=== PATIENT | male | born 1990 | race African-American/Black ===

== ENCOUNTER → 2020-01-29 14:30 | Outpatient (BNVA) | payer BC, SELFPAY | PROVIDERS: Visit Provider Nurse Practitioner Family | DX: Z20.828 Contact with and (suspected) exposure to other viral communicable diseases (principal) | CPT/HCPCS: 87635 ==

== ENCOUNTER → 2021-02-18 15:39 | Outpatient (BNVA) | payer OTHER, SELFPAY | PROVIDERS: Visit Provider Nurse Practitioner | DX: Z20.822 Contact with and (suspected) exposure to COVID-19 (principal) | CPT/HCPCS: 87635 ==

== ENCOUNTER 2021-02-27 03:29 | Emergency (ER) | payer OTHER, SELFPAY ==
[2021-02-27] VITALS (12 sets, daily range): BP systolic 123–145; BP diastolic 73–91; PULSE 91–117; RESP 16–26; O2SAT 96–99; BMI 24.4
--- NOTE | 2021-02-27 03:30 | ED_ITS ---
Documented by User: Harpal Casarez MD 03/07/21 19:38 HPI - Overdose General: Chief Complaint: Overdose Stated Complaint: substance abuse Time Seen by Provider: 02/27/21 03:29 Source: EMS Mode of arrival: EMS Limitations: altered mental status History of Present Illness: HPI Narrative: Mr. Echevarria is a 30-year-old gentleman with unclear past history who presents to the emergency department secondary to altered mental status. Per EMS report the patient injected approximately 20 cc of meth at about 1:30 AM. Upon arrival of EMS, who were activated for somewhat unclear reasons, patient was agitated, altered, tachycardic. He received Zofran, approximately 2 L of IV fluids, and roughly 200 mg of ketamine. At most his heart rate was 176. Prior to ketamine the patient denied SI to EMS. Upon assessment in the ED room patient does not provide significant history, he is somnolent. History otherwise limited by patient's mental status. complaint: other Onset (ago): hour(s) Review of Systems General: Reports: ROS unobtainable due to mental status [facility] ED PFSH: Medical History (Updated 03/07/21 @ 19:33 by Harpal Casarez MD) No significant past medical history Surgical History (Updated 03/07/21 @ 19:33 by Harpal Casarez MD) No significant past surgical history Social History Smoking and tobacco status: current every day smoker Physical Exam Const: EXAM LIMITATIONS: altered mental status GENERAL APPEARANCE: well developed HENMT: COMMON NORMALS: normocephalic, atraumatic and Normal external nose present HEAD & SCALP: normocephalic and atraumatic NOSE: Normal external nose present THROAT: posterior oropharynx normal Eye: COMMON NORMALS: Equal, round and reactive pupils present and conjunctivae normal CONJUNCTIVA: Yes conjunctivae normal SCLERA: sclerae normal PUPIL: Yes Equal, round and reactive pupils present Neck/C-Spine: COMMON NORMALS: supple GENERAL: Yes trachea midline Resp: COMMON NORMALS: normal respiratory effort EFFORT & INSPECTION: No grunting and No stridor AUSCULTATION: diminished lung sounds Cardio: COMMON NORMALS: regular rhythm RATE: tachycardic RHYTHM: regular rhythm GI: COMMON NORMALS: Soft to palpation PALPATION: Yes Soft to palpation and No Tenderness to palpation present (GI) PERCUSSION: normal to percussion Extremity: GENERAL: Yes normal exam except as noted and No edema Neuro: COMMON NORMALS: moves all extremities SENSORIUM/ORIENTATION: Yes somnolent Psych: ATTENTION/CONCENTRATION: Yes attention grossly impaired MEMORY/COGNITION: Yes cognition grossly impaired Course ED course: - Patient was seen and evaluated by me at bedside - Patient placed on cardiac monitors, IV access obtained - Initial evaluation notable for exam as above, patient is clinically intoxicated consistent with reported amphetamine abuse and mental status decreased likely secondary to prehospital ketamine administration. -Additional IV fluids ordered - Labs notable for leukocytosis which is likely reactive. Metabolic panel with evidence of dehydration. CK is mildly elevated however likely to improve with fluid resuscitation and given improvement in amphetamine intoxication. Lactate is elevated. - Imaging notable for no acute intracranial hemorrhage or mass. Chest x-ray with questionable infiltrate, unlikely to be infectious in etiology more likely. Multifactorial with possible mild aspiration though patient does not endorse respiratory symptoms - Upon serial reexamination after treatment the patient was improved. Mental status markedly improved and patient calm and cooperative. - Patient care handed off to daytime ED physician Dr Townsend pending reevaluation and repeat lactate. Note: Click bubbles or prepopulated travis in note writing are used for assistance with data collection and billing and are inherently more limited than narrative and other text portions of this note. Please use narrative for additional clinical history and defer to narrative/free test for any case of contradictory information. If information appears in only free text or click bubble it should be considered present or absent as reported. Please contact note technical publications writer for clarifications of clinical information or contradictory information. MDM is a brief summary, contradictory or erroneous seeming information should be clarified and full note should be reviewed. Vital Signs: Vital signs: Vital Signs Pulse Rate 102 H 02/27/21 12:07 Respiratory Rate 21 H 02/27/21 11:02 Blood Pressure 134/75 02/27/21 12:07 Pulse Oximetry 98 02/27/21 12:07 MDM - Overdose MDM Narrative: Medical decision making narrative: 30-year-old gentleman with reported intravenous use of methamphetamine requiring prehospital ketamine presenting for further evaluation. Initially altered in mental status though slowly improved, labs consistent with substance abuse however will likely also improve with treatment. Patient care handed off to Dr. Townsend pending reevaluation and completion of ED evaluation. Medical Records: Attestation: I reviewed the patient's medical records. Lab Data: Attestation: I reviewed the patient's lab results. Labs: Lab Results 02/27/21 02/27/21 02/27/21 03:41 03:41 03:41 WBC 13.7 10^3/uL H 10 ^3/uL (4.0-10.0) RBC 4.77 10^6/uL 10^6 /uL (4.1-5.3) Hgb 13.7 g/dL g/dL (11.7-16.6) Hct 41.8 % L % (42.0-52.0) MCV 87.6 fl fl (80-94) MCH 28.7 pg pg (28.0-34.0) MCHC 32.8 g/dL g/dL (30.0-36.0) RDW 12.3 % % (12.1-15.1) Plt Count 236 10^3/cmm 10^3 /cmm (130-400) MPV 10.1 fL fL (7.4-10.4) Neut % (Auto) 86.2 % % Lymph % (Auto) 4.7 % % [place] % (Auto) 8.4 % % Eos % (Auto) 0.1 % % Baso % (Auto) 0.2 % % Neut # (Auto) 11.85 10^3/uL H 1 0^3/uL (1.8-7.7) Lymph # (Auto) 0.6 10^3/uL L 10^ 3/uL (0.8-4.8) [place] # (Auto) 1.2 10^3/uL H 10^ 3/uL (0.2-0.9) Eos # (Auto) 0.0 10^3/uL 10^3/ uL (0.0-0.8) Baso # (Auto) 0.0 10^3/uL 10^3/ uL (0.0-0.1) Nucleated RBC % (a uto) 0 % % Nucleated RBCs # 0.0 /100WBC /100W BC Sodium 143 mmol/L mmol/L (136-145) Potassium 3.1 mmol/L L mmol /L (3.5-5.1) Chloride 105 mmol/L mmol/L (98-107) Carbon Dioxide 18 mmol/L L mmol/ L (22-29) Anion Gap 23.1 H (5-19) BUN 13 mg/dL mg/dL (6-20) Creatinine 1.1 mg/dL mg/dL (0.7-1.2) GFR Calculation 95.1 mL/min mL/mi n (90-130) Glucose 80 mg/dL mg/dL (65-115) POC Glucose Calculated Osmolal ity 295 mOsm/kg mOsm/ kg (285-295) Lactic Acid 6.8 mmol/L H* mmo l/L (0.5-2.2) Lactic Acid (Sepsi s) Lactate Calcium 8.6 mg/dL mg/dL (8.5-10.5) Total Bilirubin 0.4 mg/dL mg/dL (0.15-1.2) AST 31 U/L U/L (0-40) ALT 24 U/L U/L (0-41) Alkaline Phosphata se 81 IU/L IU/L (40-130) Creatine Kinase Total Protein 7.1 g/dL g/dL (6.6-8.7) Albumin 4.1 g/dL g/dL (3.5-5.2) Globulin 3.0 g/dL g/dL (1.3-4.6) TSH 1.76 uIU/mL uIU/m L (0.27-4.20) Urine Color Urine Appearance Urine pH Ur Specific Gravit y Urine Protein Urine Glucose (UA) Urine Ketones Urine Blood Urine Nitrate Urine Bilirubin Urine Urobilinogen Ur Leukocyte Jennifer ase Salicylates < 0.3 mg/dL L mg/ dL (3-10) Urine Opiates Scre en Acetaminophen < 5.0 ug/mL L ug/ mL (10-30) Ur Barbiturates Sc reen Ur Phencyclidine S crn Ur Amphetamines Sc reen U Benzodiazepines Scrn Urine Cocaine Scre en U Marijuana (THC) Screen Ethyl Alcohol < 10 mg/dL mg/dL (0-10) 02/27/21 02/27/21 02/27/21 03:41 03:51 05:56 WBC RBC Hgb Hct MCV MCH MCHC RDW Plt Count MPV Neut % (Auto) Lymph % (Auto) [place] % (Auto) Eos % (Auto) Baso % (Auto) Neut # (Auto) Lymph # (Auto) [place] # (Auto) Eos # (Auto) Baso # (Auto) Nucleated RBC % (a uto) Nucleated RBCs # Sodium Potassium Chloride Carbon Dioxide Anion Gap BUN Creatinine GFR Calculation Glucose POC Glucose 76 mg/dL mg/dL (70-110) Calculated Osmolal ity Lactic Acid Lactic Acid (Sepsi s) 0.9 mmol/L mmol/L (0.5-2.2) Lactate Calcium Total Bilirubin AST ALT Alkaline Phosphata se Creatine Kinase 436 U/L H* U/L (39-308) Total Protein Albumin Globulin TSH Urine Color Urine Appearance Urine pH Ur Specific Gravit y Urine Protein Urine Glucose (UA) Urine Ketones Urine Blood Urine Nitrate Urine Bilirubin Urine Urobilinogen Ur Leukocyte Jennifer ase Salicylates Urine Opiates Scre en Acetaminophen Ur Barbiturates Sc reen Ur Phencyclidine S crn Ur Amphetamines Sc reen U Benzodiazepines Scrn Urine Cocaine Scre en U Marijuana (THC) Screen Ethyl Alcohol 02/27/21 02/27/21 02/27/21 07:20 07:20 09:43 WBC RBC Hgb Hct MCV MCH MCHC RDW Plt Count MPV Neut % (Auto) Lymph % (Auto) [place] % (Auto) Eos % (Auto) Baso % (Auto) Neut # (Auto) Lymph # (Auto) [place] # (Auto) Eos # (Auto) Baso # (Auto) Nucleated RBC % (a uto) Nucleated RBCs # Sodium Potassium Chloride Carbon Dioxide Anion Gap BUN Creatinine GFR Calculation Glucose POC Glucose Calculated Osmolal ity Lactic Acid Lactic Acid (Sepsi s) Lactate 1.0 mmol/L mmol/L (0.5-2.2) Calcium Total Bilirubin AST ALT Alkaline Phosphata se Creatine Kinase Total Protein Albumin Globulin TSH Urine Color Yellow (Yellow) Urine Appearance Clear (CLEAR) Urine pH 5 (5-7) Ur Specific Gravit y 1.025 (1.005-1.030) Urine Protein Neg (Negative) Urine Glucose (UA) Norm (Normal) Urine Ketones Negative (Negative) Urine Blood Neg (Negative) Urine Nitrate Negative (Negative) Urine Bilirubin Neg (Negative) Urine Urobilinogen Norm mg/dL mg/dL (Negative) Ur Leukocyte Jennifer ase Negative (Negative) Salicylates Urine Opiates Scre en Negative ng/mL ng /mL (Negative) Acetaminophen Ur Barbiturates Sc reen Negative ng/mL ng /mL (Negative) Ur Phencyclidine S crn Negative ng/mL ng /mL (Negative) Ur Amphetamines Sc reen Positive ng/mL H ng/mL (Negative) U Benzodiazepines Scrn Negative ng/mL ng /mL (Negative) Urine Cocaine Scre en Negative ng/mL ng /mL (Negative) U Marijuana (THC) Screen Negative ng/mL ng /mL (Negative) Ethyl Alcohol 02/27/21 09:43 WBC RBC Hgb Hct MCV MCH MCHC RDW Plt Count MPV Neut % (Auto) Lymph % (Auto) [place] % (Auto) Eos % (Auto) Baso % (Auto) Neut # (Auto) Lymph # (Auto) [place] # (Auto) Eos # (Auto) Baso # (Auto) Nucleated RBC % (a uto) Nucleated RBCs # Sodium 140 mmol/L mmol/L (136-145) Potassium 4.6 mmol/L mmol/L (3.5-5.1) Chloride 106 mmol/L mmol/L (98-107) Carbon Dioxide 18 mmol/L L mmol/ L (22-29) Anion Gap 20.6 H (5-19) BUN 11 mg/dL mg/dL (6-20) Creatinine 0.9 mg/dL mg/dL (0.7-1.2) GFR Calculation 119.9 mL/min mL/m in (90-130) Glucose 68 mg/dL mg/dL (65-115) POC Glucose Calculated Osmolal ity 288 mOsm/kg mOsm/ kg (285-295) Lactic Acid Lactic Acid (Sepsi s) Lactate Calcium 8.2 mg/dL L mg/dL (8.5-10.5) Total Bilirubin AST ALT Alkaline Phosphata se Creatine Kinase Total Protein Albumin Globulin TSH Urine Color Urine Appearance Urine pH Ur Specific Gravit y Urine Protein Urine Glucose (UA) Urine Ketones Urine Blood Urine Nitrate Urine Bilirubin Urine Urobilinogen Ur Leukocyte Jennifer ase Salicylates Urine Opiates Scre en Acetaminophen Ur Barbiturates Sc reen Ur Phencyclidine S crn Ur Amphetamines Sc reen U Benzodiazepines Scrn Urine Cocaine Scre en U Marijuana (THC) Screen Ethyl Alcohol EKG Data^: EKG 1: Attestation: I personally reviewed and interpreted this EKG as follows: EKG interpretation date: 02/27/21 EKG interpretation time: 03:40 Interpretation: Twelve-lead EKG shows a regular rhythm at a rate of 102. UT interval 162, QRS duration 83, QTc 477. Normal axis. Interpretation: Sinus rhythm. Critical Care Time Critical Care Time: Critical Care Time: Yes Total Critical Care Time: 35 Attestation: Due to a high probability of clinically significant, possibly life threatening deterioration, the patient required my highest level of attention and preparedness to intervene emergently and I personally spent this critical care time directly and personally managing the patient. This critical care time included obtaining a history; examining the patient; pulse oximetry; ordering and review of laboratory and imaging studies; arranging urgent treatment with development of a management plan; evaluation of patient's response to treatment; frequent reassessment; and, discussions with other providers as applicable. It was exclusive of separately billable procedures. Discharge Plan Discharge Patient Disposition: Home Clinical Impression: Methamphetamine abuse, Acidosis, lactic, Acute hypokalemia, Elevated CK Condition: Stable Prescriptions: No Action No Known Home Medications RF: 0 Discharge Orders: Discharge ED (Routine); Ordered 02/27/21 Ordered By: Himanshu Townsend Discharge Diet: Usual diet Discharge Activity: Increase activity as tolerated Patient Instructions: Dehydration (ED), Hypokalemia (ED), Methamphetamine Abuse (ED), Psychotic Disorder (ED) Activity Restrictions/Additional Instructions: Thank you for visiting the emergency department. You were seen and evaluated for altered mental status likely associated with methamphetamine abuse. The drugs that you ingested put significant stress on your body. Please ensure that you are staying hydrated over the next few days. Please stop using methamphetamine. Failure to stop using methamphetamine will likely lead to or worse. Please follow-up with your primary care provider. Return to the emergency department for decreased urine output, shortness of breath, chest pain, weakness, palpitations, or anything else that you are concerned about and feel needs emergency department evaluation. Sign Out Sign Out Data: Patient Sign Out occurred on 02/27/21 at 06:46. Patient's care was discussed, and care was transferred from to Himanshu Townsend DO. Coding Level of Care Code ED Dietary Assistant for Chg Fwd Exam Comprehensive Documented by User: Himanshu Townsend DO 03/02/21 07:53 HPI - Overdose General: Chief Complaint: Overdose Stated Complaint: substance abuse Time Seen by Provider: 02/27/21 03:29 [facility] ED PFSH: Medical History (Updated 03/07/21 @ 19:33 by Harpal Casarez MD) No significant past medical history Surgical History (Updated 03/07/21 @ 19:33 by Harpal Casarez MD) No significant past surgical history Social History Smoking and tobacco status: current every day smoker Physical Exam Const: COMMON NORMALS: no acute distress GENERAL APPEARANCE: cooperative and comfortable ORIENTATION/CONSCIOUSNESS: Yes awake, Yes oriented to person, Yes oriented to place and Yes oriented to time HENMT: COMMON NORMALS: normocephalic, atraumatic and hearing grossly normal bilaterally HEAD & SCALP: normocephalic and atraumatic Neck/C-Spine: COMMON NORMALS: no JVD Resp: COMMON NORMALS: normal respiratory effort, No retractions, No use of accessory muscles and clear to auscultation bilaterally AUSCULTATION: clear to auscultation bilaterally Cardio: COMMON NORMALS: no JVD, regular rate, regular rhythm and No murmurs present (Cardio) RATE: regular rate RHYTHM: regular rhythm GI: COMMON NORMALS: Soft to palpation and No hepatosplenomegaly present AUSCULTATION: Yes normoactive bowel sounds PALPATION: Yes Soft to palpation, No Tenderness to palpation present (GI), No Guarding due to palpation present (GI) and Yes No hepatosplenomegaly present Extremity: COMMON NORMALS: normal to inspection, capillary refill normal, no clubbing, cyanosis or edema, no calf tenderness and no pedal edema Neuro: SENSORIUM/ORIENTATION: Yes oriented to person, Yes oriented to place and Yes oriented to time Skin: COMMON NORMALS: no rashes or lesions noted GENERAL SKIN EXAM: no rashes or lesions noted Course Vital Signs: Vital signs: Vital Signs Pulse Rate 102 H 02/27/21 12:07 Respiratory Rate 21 H 02/27/21 11:02 Blood Pressure 134/75 02/27/21 12:07 Pulse Oximetry 98 02/27/21 12:07 MDM - Overdose MDM Narrative: Medical decision making narrative: Care assumed from Dr. Casarez at change of shift. He was monitored for a few more hours he is doing much better his tachycardia has resolved he is awake alert oriented answers all questions appropriately. Repeat lactic acid is decreased. His anion gap has started to close. He is feeling much better and he wants to go home. He no longer appears to be acutely under the influence of methamphetamines. Discouraged future methamphetamine use discharge home follow-up with primary care. Lab Data: Labs: Lab Results 02/27/21 02/27/21 02/27/21 03:41 03:41 03:41 WBC 13.7 10^3/uL H 10 ^3/uL (4.0-10.0) RBC 4.77 10^6/uL 10^6 /uL (4.1-5.3) Hgb 13.7 g/dL g/dL (11.7-16.6) Hct 41.8 % L % (42.0-52.0) MCV 87.6 fl fl (80-94) MCH 28.7 pg pg (28.0-34.0) MCHC 32.8 g/dL g/dL (30.0-36.0) RDW 12.3 % % (12.1-15.1) Plt Count 236 10^3/cmm 10^3 /cmm (130-400) MPV 10.1 fL fL (7.4-10.4) Neut % (Auto) 86.2 % % Lymph % (Auto) 4.7 % % [place] % (Auto) 8.4 % % Eos % (Auto) 0.1 % % Baso % (Auto) 0.2 % % Neut # (Auto) 11.85 10^3/uL H 1 0^3/uL (1.8-7.7) Lymph # (Auto) 0.6 10^3/uL L 10^ 3/uL (0.8-4.8) [place] # (Auto) 1.2 10^3/uL H 10^ 3/uL (0.2-0.9) Eos # (Auto) 0.0 10^3/uL 10^3/ uL (0.0-0.8) Baso # (Auto) 0.0 10^3/uL 10^3/ uL (0.0-0.1) Nucleated RBC % (a uto) 0 % % Nucleated RBCs # 0.0 /100WBC /100W BC Sodium 143 mmol/L mmol/L (136-145) Potassium 3.1 mmol/L L mmol /L (3.5-5.1) Chloride 105 mmol/L mmol/L (98-107) Carbon Dioxide 18 mmol/L L mmol/ L (22-29) Anion Gap 23.1 H (5-19) BUN 13 mg/dL mg/dL (6-20) Creatinine 1.1 mg/dL mg/dL (0.7-1.2) GFR Calculation 95.1 mL/min mL/mi n (90-130) Glucose 80 mg/dL mg/dL (65-115) POC Glucose Calculated Osmolal ity 295 mOsm/kg mOsm/ kg (285-295) Lactic Acid 6.8 mmol/L H* mmo l/L (0.5-2.2) Lactic Acid (Sepsi s) Lactate Calcium 8.6 mg/dL mg/dL (8.5-10.5) Total Bilirubin 0.4 mg/dL mg/dL (0.15-1.2) AST 31 U/L U/L (0-40) ALT 24 U/L U/L (0-41) Alkaline Phosphata se 81 IU/L IU/L (40-130) Creatine Kinase Total Protein 7.1 g/dL g/dL (6.6-8.7) Albumin 4.1 g/dL g/dL (3.5-5.2) Globulin 3.0 g/dL g/dL (1.3-4.6) TSH 1.76 uIU/mL uIU/m L (0.27-4.20) Urine Color Urine Appearance Urine pH Ur Specific Gravit y Urine Protein Urine Glucose (UA) Urine Ketones Urine Blood Urine Nitrate Urine Bilirubin Urine Urobilinogen Ur Leukocyte Jennifer ase Salicylates < 0.3 mg/dL L mg/ dL (3-10) Urine Opiates Scre en Acetaminophen < 5.0 ug/mL L ug/ mL (10-30) Ur Barbiturates Sc reen Ur Phencyclidine S crn Ur Amphetamines Sc reen U Benzodiazepines Scrn Urine Cocaine Scre en U Marijuana (THC) Screen Ethyl Alcohol < 10 mg/dL mg/dL (0-10) 02/27/21 02/27/21 02/27/21 03:41 03:51 05:56 WBC RBC Hgb Hct MCV MCH MCHC RDW Plt Count MPV Neut % (Auto) Lymph % (Auto) [place] % (Auto) Eos % (Auto) Baso % (Auto) Neut # (Auto) Lymph # (Auto) [place] # (Auto) Eos # (Auto) Baso # (Auto) Nucleated RBC % (a uto) Nucleated RBCs # Sodium Potassium Chloride Carbon Dioxide Anion Gap BUN Creatinine GFR Calculation Glucose POC Glucose 76 mg/dL mg/dL (70-110) Calculated Osmolal ity Lactic Acid Lactic Acid (Sepsi s) 0.9 mmol/L mmol/L (0.5-2.2) Lactate Calcium Total Bilirubin AST ALT Alkaline Phosphata se Creatine Kinase 436 U/L H* U/L (39-308) Total Protein Albumin Globulin TSH Urine Color Urine Appearance Urine pH Ur Specific Gravit y Urine Protein Urine Glucose (UA) Urine Ketones Urine Blood Urine Nitrate Urine Bilirubin Urine Urobilinogen Ur Leukocyte Jennifer ase Salicylates Urine Opiates Scre en Acetaminophen Ur Barbiturates Sc reen Ur Phencyclidine S crn Ur Amphetamines Sc reen U Benzodiazepines Scrn Urine Cocaine Scre en U Marijuana (THC) Screen Ethyl Alcohol 02/27/21 02/27/21 02/27/21 07:20 07:20 09:43 WBC RBC Hgb Hct MCV MCH MCHC RDW Plt Count MPV Neut % (Auto) Lymph % (Auto) [place] % (Auto) Eos % (Auto) Baso % (Auto) Neut # (Auto) Lymph # (Auto) [place] # (Auto) Eos # (Auto) Baso # (Auto) Nucleated RBC % (a uto) Nucleated RBCs # Sodium Potassium Chloride Carbon Dioxide Anion Gap BUN Creatinine GFR Calculation Glucose POC Glucose Calculated Osmolal ity Lactic Acid Lactic Acid (Sepsi s) Lactate 1.0 mmol/L mmol/L (0.5-2.2) Calcium Total Bilirubin AST ALT Alkaline Phosphata se Creatine Kinase Total Protein Albumin Globulin TSH Urine Color Yellow (Yellow) Urine Appearance Clear (CLEAR) Urine pH 5 (5-7) Ur Specific Gravit y 1.025 (1.005-1.030) Urine Protein Neg (Negative) Urine Glucose (UA) Norm (Normal) Urine Ketones Negative (Negative) Urine Blood Neg (Negative) Urine Nitrate Negative (Negative) Urine Bilirubin Neg (Negative) Urine Urobilinogen Norm mg/dL mg/dL (Negative) Ur Leukocyte Jennifer ase Negative (Negative) Salicylates Urine Opiates Scre en Negative ng/mL ng /mL (Negative) Acetaminophen Ur Barbiturates Sc reen Negative ng/mL ng /mL (Negative) Ur Phencyclidine S crn Negative ng/mL ng /mL (Negative) Ur Amphetamines Sc reen Positive ng/mL H ng/mL (Negative) U Benzodiazepines Scrn Negative ng/mL ng /mL (Negative) Urine Cocaine Scre en Negative ng/mL ng /mL (Negative) U Marijuana (THC) Screen Negative ng/mL ng /mL (Negative) Ethyl Alcohol 02/27/21 09:43 WBC RBC Hgb Hct MCV MCH MCHC RDW Plt Count MPV Neut % (Auto) Lymph % (Auto) [place] % (Auto) Eos % (Auto) Baso % (Auto) Neut # (Auto) Lymph # (Auto) [place] # (Auto) Eos # (Auto) Baso # (Auto) Nucleated RBC % (a uto) Nucleated RBCs # Sodium 140 mmol/L mmol/L (136-145) Potassium 4.6 mmol/L mmol/L (3.5-5.1) Chloride 106 mmol/L mmol/L (98-107) Carbon Dioxide 18 mmol/L L mmol/ L (22-29) Anion Gap 20.6 H (5-19) BUN 11 mg/dL mg/dL (6-20) Creatinine 0.9 mg/dL mg/dL (0.7-1.2) GFR Calculation 119.9 mL/min mL/m in (90-130) Glucose 68 mg/dL mg/dL (65-115) POC Glucose Calculated Osmolal ity 288 mOsm/kg mOsm/ kg (285-295) Lactic Acid Lactic Acid (Sepsi s) Lactate Calcium 8.2 mg/dL L mg/dL (8.5-10.5) Total Bilirubin AST ALT Alkaline Phosphata se Creatine Kinase Total Protein Albumin Globulin TSH Urine Color Urine Appearance Urine pH Ur Specific Gravit y Urine Protein Urine Glucose (UA) Urine Ketones Urine Blood Urine Nitrate Urine Bilirubin Urine Urobilinogen Ur Leukocyte Jennifer ase Salicylates Urine Opiates Scre en Acetaminophen Ur Barbiturates Sc reen Ur Phencyclidine S crn Ur Amphetamines Sc reen U Benzodiazepines Scrn Urine Cocaine Scre en U Marijuana (THC) Screen Ethyl Alcohol Discharge Plan Discharge Patient Disposition: Home Clinical Impression: Methamphetamine abuse, Acidosis, lactic, Acute hypokalemia, Elevated CK Condition: Stable Prescriptions: No Action No Known Home Medications RF: 0 Discharge Orders: Discharge ED (Routine); Ordered 02/27/21 Ordered By: Himanshu Townsend Discharge Diet: Usual diet Discharge Activity: Increase activity as tolerated Patient Instructions: Dehydration (ED), Hypokalemia (ED), Methamphetamine Abuse (ED), Psychotic Disorder (ED) Activity Restrictions/Additional Instructions: Thank you for visiting the emergency department. You were seen and evaluated for altered mental status likely associated with methamphetamine abuse. The drugs that you ingested put significant stress on your body. Please ensure that you are staying hydrated over the next few days. Please stop using methamphetamine. Failure to stop using methamphetamine will likely lead to or worse. Please follow-up with your primary care provider. Return to the emergency department for decreased urine output, shortness of breath, chest pain, weakness, palpitations, or anything else that you are concerned about and feel needs emergency department evaluation. Sign Out Sign Out Data: Patient Sign Out occurred on 02/27/21 at 06:46. Patient's care was discussed, and care was transferred from to Himanshu Townsend DO. Coding Level of Care Code ED Dietary Assistant for Jan Fwyeni Exam Comprehensive
--- NOTE | 2021-02-27 03:42 | XRR_ITS ---
PROCEDURE INFORMATION: Exam: XR Chest Exam date and time: 02/27/2021 3:42 AM Age: 30 years old Clinical indication: Patient HX: Meth overdose. Abnormal auscultation. Best film submitted. Patient unable to keep still on detector. ; Additional info: AMS. Abnormal breath sounds TECHNIQUE: Imaging protocol: XR of the chest. Views: 1 view. COMPARISON: No relevant prior studies available. FINDINGS: Lungs: No CHF/pulmonary edema. Possible subtle, very mild mid and lower lung opacities. Possibly this could represent atelectasis versus subtle pneumonitis. Please correlate clinically. Visible lungs otherwise appear essentially clear. Pleural spaces: No visible pneumothorax. No definite pleural fluid. Heart/Mediastinum: Heart size is within normal limits. Bones/joints: No significant acute finding. XR/XR chest 1V portable [id number] IMPRESSION: 1. Possible subtle, very mild mid and lower lung opacities. Possibly this could represent atelectasis versus subtle pneumonitis. Please correlate clinically. 2. Other findings discussed above.
--- NOTE | 2021-02-27 03:42 | ECG_ITS ---
[facility] Test Date: 2021-02-27 Pat Name: Sean Echevarria Department: Room: Gender: Male Purchase Price Analyst: : 1990 Requested By: Harpal Casarez Order Number: [id number] Sury MD: DANELLE WHITE Measurements Intervals [place] Rate: 102 P: 65 DC: 162 QRS: 53 QRSD: 83 T: 66 QT: 366 QTc: 477 Interpretive Statements SINUS TACHYCARDIA POSSIBLE RIGHT VENTRICULAR CONDUCTION DELAY [RSR (QR) IN V1/V2] ABNORMAL RHYTHM ECG No previous ECG available for comparison Electronically Signed On 02-27-2021 18:16:12 DATA ANALYSIS ASSISTANT by DANELLE WHITE [id number]
--- NOTE | 2021-02-27 03:42 | CTR_ITS ---
PROCEDURE INFORMATION: Exam: CT Head Without Contrast Exam date and time: 02/27/2021 3:42 AM Age: 30 years old Clinical indication: Altered mental status/memory loss; Patient HX: AMS. Meth overdose. TECHNIQUE: Imaging protocol: Computed tomography of the head without contrast. Radiation optimization: All CT scans at this facility use at least one of these dose optimization techniques: automated exposure control; mA and/or kV adjustment per patient size (includes targeted exams where dose is matched to clinical indication); or iterative reconstruction. COMPARISON: No relevant prior studies available. RADIATION DOSE METRICS: Total DLP (mGy-cm): 718.7 FINDINGS: Brain: No acute intracranial hemorrhage or mass effect. No definite acute infarct by CT. MRI could be more sensitive/specific for detection, as clinically directed. Cerebral ventricles: Ventricle size is normal for age. Paranasal sinuses: Included paranasal sinuses are essentially clear. Mastoid air cells: No significant acute finding. Bones/joints: No definite acute skull fracture. CT/CT head wo con* [id number] IMPRESSION: 1. No acute intracranial hemorrhage or mass effect. 2. No definite acute infarct by CT, see above. 3. Other findings discussed above. 4. Some limitations due to artifact from patient motion.
[2021-02-27 03:55] LABS: Glucose Point of Care 76 mg/dL (70-110)
[2021-02-27] MEDS: dextrose 50% syringe 50 mL 25 ML IVP (03:56)
[2021-02-27 03:59] LABS: Basophils % 0.2 %; Eosinophils % 0.1 %; Hematocrit 41.8 % (42.0-52.0); Hemoglobin 13.7 g/dL (11.7-16.6); Lymphocytes # 0.6 10^3/uL (0.8-4.8); Lymphocytes % 4.7 %; Mean Corpuscular HGB Conc 32.8 g/dL (30.0-36.0); Mean Corpuscular Hemoglobin 28.7 pg (28.0-34.0); Mean Corpuscular Volume 87.6 fl (80-94); Mean Platelet Volume 10.1 fL (7.4-10.4); Monocytes # 1.2 10^3/uL (0.2-0.9); Monocytes % 8.4 %; Neutrophils # 11.85 10^3/uL (1.8-7.7); Neutrophils % 86.2 %; Nucleated Red Blood Cells % 0 %; Platelet Count 236 10^3/cmm (130-400); Red Blood Count 4.77 10^6/uL (4.1-5.3); Red Cell Distribution Width 12.3 % (12.1-15.1); White Blood Count 13.7 10^3/uL (4.0-10.0)
[2021-02-27 04:24] LABS: Lactic Sepsis W/Reflex 6.8 mmol/L (0.5-2.2)
[2021-02-27 04:30] LABS: Alanine Aminotransferase 24 U/L (0-41); Albumin Level 4.1 g/dL (3.5-5.2); Alkaline Phosphatase 81 IU/L (40-130); Anion Gap 23.1 (5-19); Aspartate Amino Transferase 31 U/L (0-40); Blood Urea Nitrogen 13 mg/dL (6-20); Calcium 8.6 mg/dL (8.5-10.5); Carbon Dioxide 18 mmol/L (22-29); Chloride 105 mmol/L (98-107); Creatinine Clr Calc Pharmacy 106.8494; Glomerular Filtration Rate 95.1 mL/min (90-130); Glucose 80 mg/dL (65-115); Osmolality Calculated 295 mOsm/kg (285-295); Potassium 3.1 mmol/L (3.5-5.1); Sodium 143 mmol/L (136-145); Thyroid Stimulating Hormone 1.76 uIU/mL (0.27-4.20); Total Bilirubin 0.4 mg/dL (0.15-1.2); Total Protein 7.1 g/dL (6.6-8.7)
[2021-02-27 04:32] LABS: Acetaminophen < 5.0 ug/mL (10-30); Alcohol Level < 10 mg/dL (0-10); Salicylate < 0.3 mg/dL (3-10)
[2021-02-27] MEDS: sodium chloride 0.9% 1,000 ML 999 ML IV ×2 (04:52→06:02)
[2021-02-27 04:59] LABS: Creatine Phosphokinase 436 U/L (39-308)
[2021-02-27] MEDS: lidocaine 1% 5 ML in potassium chloride premix 100 ML 25 ML IV (05:17)
--- NOTE | 2021-02-27 05:18 | PC.NURSE ---
Pt. is now alert and oriented . Pt. states that he took the meth tonight due to having a bad few months. Pt. states that he plans on quitting this year because he wants to go to school and change his life.
[2021-02-27 05:44] LABS: Reflex Lactate Order REFLEX LACTIC ORDERD
--- NOTE | 2021-02-27 06:03 | PC.NURSE ---
Pt. refused IV potassium , due to it burning his arm. I have slowed down the infusion, but pt. states that it is hurting too bad.
[2021-02-27 06:26] LABS: Lactic Acid level (Lactate) 0.9 mmol/L (0.5-2.2)
[2021-02-27] MEDS: potassium chloride oral liq 20 mEq/15 mL UDC 40 MEQ PO (06:29)
--- NOTE | 2021-02-27 06:43 | PC.NURSE ---
Pt. awake and alert. Pt. is no longer confused. Pt. up at bedside using phone and talking.
[2021-02-27 07:25] LABS: Add Urine Microscopic? NO; Charge for UA Resulting for Rev
[2021-02-27 07:29] LABS: Bilirubin Urine Neg (Negative); Blood Urine Neg (Negative); Glucose Urine UA Norm (Normal); Ketones Urine Negative (Negative); Leukocyte Esterase Urine Negative (Negative); Nitrate Urine Negative (Negative); Protein Urine Neg (Negative); Specific Gravity, Urine 1.025 (1.005-1.030); Urine Appearance Clear (CLEAR); Urine Color Yellow (Yellow); Urobilinogen Urine Norm (Negative); pH Urine 5 (5-7)
[2021-02-27 07:38] LABS: Amphetamines Screen Urine Positive (Negative); Barbiturates Screen Urine Negative (Negative); Benzodiazepines Screen Urine Negative (Negative); Cocaine Screen Urine Negative (Negative); Opiate Screen Urine Negative (Negative); PCP Screen Urine Negative (Negative); THC Screen Urine Negative (Negative)
--- NOTE | 2021-02-27 09:29 | PC.PHAR ---
pt states he takes no rx or otc medications
[2021-02-27 10:07] LABS: Anion Gap 20.6 (5-19); Blood Urea Nitrogen 11 mg/dL (6-20); Calcium 8.2 mg/dL (8.5-10.5); Carbon Dioxide 18 mmol/L (22-29); Chloride 106 mmol/L (98-107); Glomerular Filtration Rate 119.9 mL/min (90-130); Glucose 68 mg/dL (65-115); Osmolality Calculated 288 mOsm/kg (285-295); Potassium 4.6 mmol/L (3.5-5.1); Sodium 140 mmol/L (136-145)
== END 2021-02-27 12:05 | disposition home or self-care (01) ==
PROVIDERS: Emergency Medicine; Emergency Provider Family Medicine
DX: F15.10 Other stimulant abuse, uncomplicated (principal); E87.2 Acidosis; E87.6 Hypokalemia; R79.89 Other specified abnormal findings of blood chemistry; F17.210 Nicotine dependence, cigarettes, uncomplicated
CPT/HCPCS: 36416; 70450; 71045; 80048; 80053; 80306; 80307; 81003; 82550; 82962; 83605; 84443; 85025; 93005; 96361; 96365; 96375; 99284; J3480; J7030

== ENCOUNTER 2021-02-27 19:14 | Inpatient (IN) | payer SELFPAY ==
[2021-02-27 19:15] VITALS: BP 125/68; PULSE 84; RESP 18; O2SAT 99; BMI 21.6
--- NOTE | 2021-02-27 19:22 | CTR_ITS ---
PROCEDURE INFORMATION: Exam: CT Head Without Contrast Exam date and time: 02/27/2021 7:22 PM Age: 30 years old Clinical indication: Altered mental status/memory loss; Patient HX: Patient presents for 2nd time in less than 24 hours for AMS due to possible drug overdose. Patient more altered this visit. Scan repeated multiple times due to motion. TECHNIQUE: Imaging protocol: Computed tomography of the head without contrast. Radiation optimization: All CT scans at this facility use at least one of these dose optimization techniques: automated exposure control; mA and/or kV adjustment per patient size (includes targeted exams where dose is matched to clinical indication); or iterative reconstruction. COMPARISON: CT head wo con* [id number] 02/27/2021 4:05 AM RADIATION DOSE METRICS: Total DLP (mGy-cm): 4271.06 FINDINGS: Brain: Normal. No hemorrhage. Unremarkable white matter. No mass effect. Cerebral ventricles: No ventriculomegaly. Paranasal sinuses: Visualized sinuses are unremarkable. No fluid levels. Mastoid air cells: Visualized mastoid air cells are well aerated. Bones/joints: Unremarkable. No acute fracture. Soft tissues: Unremarkable. CT/CT head wo con* [id number] IMPRESSION: No acute intracranial abnormality.
--- NOTE | 2021-02-27 19:22 | ECG_ITS ---
[facility] Test Date: 2021-02-27 Pat Name: Sean Echevarria Department: Room: Gender: Male Human Resources Mgr: : 1990 Requested By: Harshad Sol Order Number: [id number] Reading MD: DANELLE WHITE Measurements Intervals [place] Rate: 81 P: 66 TX: 151 QRS: 51 QRSD: 89 T: 61 QT: 403 QTc: 471 Interpretive Statements SINUS RHYTHM Compared to ECG 02/27/2021 03:38:54 Sinus tachycardia no longer present Electronically Signed On 03-01-2021 17:47:47 PROFILING MACHINE SET UP OPERATOR TOOL by DANELLE WHITE [id number]
--- NOTE | 2021-02-27 19:22 | XRR_ITS ---
PROCEDURE INFORMATION: Exam: XR Chest Exam date and time: 02/27/2021 7:22 PM Age: 30 years old Clinical indication: Other: AMS TECHNIQUE: Imaging protocol: XR of the chest. Views: 1 view. COMPARISON: CR (CHEST, ) 02/27/2021 3:53 AM FINDINGS: Lungs: No consolidation. Pleural spaces: Unremarkable. No pleural effusion. No pneumothorax. Heart/Mediastinum: Unremarkable. No cardiomegaly. Bones/joints: Unremarkable. XR/XR chest 1V portable [id number] IMPRESSION: No acute findings.
[2021-02-27] MEDS: LORazepam 2 mg/mL INJ 1 mL IV (19:47)
[2021-02-27 19:53] LABS: Basophils % 0.3 %; Hemoglobin 11.9 g/dL (11.7-16.6); Lymphocytes # 0.9 10^3/uL (0.8-4.8); Lymphocytes % 11.9 %; Mean Corpuscular HGB Conc 33.1 g/dL (30.0-36.0); Mean Corpuscular Hemoglobin 29.2 pg (28.0-34.0); Mean Corpuscular Volume 88.5 fl (80-94); Mean Platelet Volume 9.6 fL (7.4-10.4); Monocytes # 0.8 10^3/uL (0.2-0.9); Monocytes % 11.2 %; Neutrophils # 5.65 10^3/uL (1.8-7.7); Neutrophils % 76.3 %; Nucleated Red Blood Cells % 0 %; Platelet Count 203 10^3/cmm (130-400); Red Blood Count 4.07 10^6/uL (4.1-5.3); Red Cell Distribution Width 12.7 % (12.1-15.1); White Blood Count 7.4 10^3/uL (4.0-10.0)
--- NOTE | 2021-02-27 19:53 | ED_ITS ---
HPI - Overdose General: Chief Complaint: Overdose Stated Complaint: ams Time Seen by Provider: 02/27/21 19:17 Source: EMS Mode of arrival: EMS Limitations: altered mental status History of Present Illness: HPI Narrative: 30-year-old male has a history of methamphetamine abuse was seen here yesterday after shooting up methamphetamine having agitation patient was given ketamine yesterday did calm down was discharged patient started having outburst again today and EMS was called he states when they got to him today he was very violent follow-up with them and was agitated and altered they had to give him 400 mg of ketamine to sedate him patient now is sedated I am not able to get any history from him due to his sedation he is diaphoretic Review of Systems General: Reports: ROS unobtainable due to mental status PFSH ED PFSH: Social History Smoking and tobacco status: current every day smoker Physical Exam Const: COMMON NORMALS: negative for patient oriented x3 EXAM LIMITATIONS: altered mental status GENERAL APPEARANCE: in distress HENMT: COMMON NORMALS: normocephalic and atraumatic HEAD & SCALP: normocephalic and atraumatic Eye: COMMON NORMALS: Equal, round and reactive pupils present and EOMs intact bilaterally PUPIL: Yes Equal, round and reactive pupils present Neck/C-Spine: COMMON NORMALS: full ROM and supple Chest: COMMONS NORMALS: normal inspection of the chest and normal palpation of entire chest wall Resp: COMMON NORMALS: normal respiratory effort, No retractions, No use of accessory muscles and clear to auscultation bilaterally AUSCULTATION: clear to auscultation bilaterally Cardio: COMMON NORMALS: regular rate, regular rhythm and No murmurs present (Cardio) RATE: regular rate RHYTHM: regular rhythm GI: COMMON NORMALS: Normal to inspection, nondistended, normoactive bowel sounds present, Soft to palpation, non-tender and no masses PALPATION: Yes Soft to palpation Extremity: COMMON NORMALS: normal to inspection and full ROM Neuro: COMMON NORMALS: moves all extremities; negative for patient oriented x3 Psych: COMMON NORMALS: negative for mental status grossly normal Skin: COMMON NORMALS: no rashes or lesions noted and no wounds GENERAL SKIN EXAM: no rashes or lesions noted Course Vital Signs: Vital signs: Vital Signs Pulse Rate 85 02/27/21 21:50 Respiratory Rate 18 02/27/21 21:50 Blood Pressure 127/78 02/27/21 21:50 Pulse Oximetry 100 02/27/21 21:50 MDM - Overdose MDM Narrative: Medical decision making narrative: Patient presents with altered no status due to drug abuse. He has been waking up here is able to clear him from his restraints he has been cooperative here will wake up answer questions but is still sedated at this time. Patient's head CT is normal blood work looks normal except for an elevated CK likely due to his drug abuse causing rhabdomyolysis. Spoke to the hospitalist will admit at this time for IV fluids he has not had any suicidality or homicidality Lab Data: Labs: Lab Results 02/27/21 02/27/21 02/27/21 19:45 19:45 19:47 WBC 7.4 10^3/uL 10^3/ uL (4.0-10.0) RBC 4.07 10^6/uL L 10 ^6/uL (4.1-5.3) Hgb 11.9 g/dL g/dL (11.7-16.6) Hct 36.0 % L % (42.0-52.0) MCV 88.5 fl fl (80-94) MCH 29.2 pg pg (28.0-34.0) MCHC 33.1 g/dL g/dL (30.0-36.0) RDW 12.7 % % (12.1-15.1) Plt Count 203 10^3/cmm 10^3 /cmm (130-400) MPV 9.6 fL fL (7.4-10.4) Neut % (Auto) 76.3 % % Lymph % (Auto) 11.9 % % [place] % (Auto) 11.2 % % Eos % (Auto) 0.0 % % Baso % (Auto) 0.3 % % Neut # (Auto) 5.65 10^3/uL 10^3 /uL (1.8-7.7) Lymph # (Auto) 0.9 10^3/uL 10^3/ uL (0.8-4.8) [place] # (Auto) 0.8 10^3/uL 10^3/ uL (0.2-0.9) Eos # (Auto) 0.0 10^3/uL 10^3/ uL (0.0-0.8) Baso # (Auto) 0.0 10^3/uL 10^3/ uL (0.0-0.1) Nucleated RBC % (a uto) 0 % % Nucleated RBCs # 0.0 /100WBC /100W BC Specimen Type Arterial Sample Site Radial, right ABG pH 7.35 (7.35-7.45) ABG pCO2 41.4 mmHg mmHg (35-45) ABG pO2 173.0 mmHg H mmHg (80.0-100.0) ABG HCO3 22.7 mmol/L mmol/ L (22-26) ABG Base Excess -2.9 mmol/L L mmo l/L (-2.0-2.0) Eros Test Pos Hematocrit 38.0 % L % (42-52) O2 Delivery Device Nc O2 Liters/Min 4.0 % % Trolley Car Overhauler ID Buttr Sodium 139 mmol/L mmol/L (136-145) Potassium 3.6 mmol/L mmol/L (3.5-5.1) Chloride 108 mmol/L H mmol /L (98-107) Carbon Dioxide 20 mmol/L L mmol/ L (22-29) Anion Gap 14.6 (5-19) BUN 9 mg/dL mg/dL (6-20) Creatinine 0.8 mg/dL mg/dL (0.7-1.2) GFR Calculation 137.3 mL/min H mL /min (90-130) Glucose 85 mg/dL mg/dL (65-115) Calculated Osmolal ity 286 mOsm/kg mOsm/ kg (285-295) Calcium 7.0 mg/dL L mg/dL (8.5-10.5) Total Bilirubin 0.3 mg/dL mg/dL (0.15-1.2) AST 41 U/L H U/L (0-40) ALT 23 U/L U/L (0-41) Alkaline Phosphata se 61 IU/L IU/L (40-130) Creatine Kinase 1728 U/L H* D U/L (39-308) Total Protein 5.4 g/dL L D g/dL (6.6-8.7) Albumin 3.4 g/dL L g/dL (3.5-5.2) Globulin 2.0 g/dL g/dL (1.3-4.6) Salicylates < 0.3 mg/dL L mg/ dL (3-10) Acetaminophen < 5.0 ug/mL L ug/ mL (10-30) Ethyl Alcohol < 10 mg/dL mg/dL (0-10) EKG Data^: EKG 1: Attestation: I personally reviewed and interpreted this EKG as follows: EKG interpretation date: 02/27/21 EKG interpretation time: 19:57 Interpretation: nsr hr [address] or t wave abnormlities qrs 89 qtc 441 Discharge Plan Discharge Patient Disposition: Admitted As Inpatient Clinical Impression: Methamphetamine abuse, Elevated CK Condition: Stable Coding Level of Care Code ED Covering And Lining Supervisor for Chg Fwd Exam Comprehensive Face to Face: Restrn/Seclusion Events leading up to initiation: Combative/Striking out at staff or others Evaluation of patient's immediate situation: Signs of psychological distress Patient reaction since intervention applied: Behaviors/threats have lessened, but still present Recent labs reviewed: Yes Review of medications: Yes Attending notified: Yes
[2021-02-27 19:59] LABS: ABG PCO2 41.4 mmHg (35-45); ABG PH Result 7.35 (7.35-7.45); Base Excess ABG -2.9 mmol/L (-2.0-2.0); Blood Gas Allen Test Pos; Blood Gas Sample Site Radial, right; Blood Gas Sample Type Arterial; HCO3 ABG 22.7 mmol/L (22-26); Oxygen Device NC
[2021-02-27 20:09] LABS: Alanine Aminotransferase 23 U/L (0-41); Albumin Level 3.4 g/dL (3.5-5.2); Alkaline Phosphatase 61 IU/L (40-130); Aspartate Amino Transferase 41 U/L (0-40); Blood Urea Nitrogen 9 mg/dL (6-20); Carbon Dioxide 20 mmol/L (22-29); Chloride 108 mmol/L (98-107); Glomerular Filtration Rate 137.3 mL/min (90-130); Glucose 85 mg/dL (65-115); Osmolality Calculated 286 mOsm/kg (285-295); Sodium 139 mmol/L (136-145); Total Bilirubin 0.3 mg/dL (0.15-1.2); Total Protein 5.4 g/dL (6.6-8.7)
[2021-02-27 20:15] LABS: Acetaminophen < 5.0 ug/mL (10-30); Alcohol Level < 10 mg/dL (0-10); Anion Gap 14.6 (5-19); Potassium 3.6 mmol/L (3.5-5.1); Salicylate < 0.3 mg/dL (3-10)
[2021-02-27 20:16] LABS: Creatine Phosphokinase 1728 U/L (39-308)
[2021-02-27 20:41] VITALS: BP 147/101; PULSE 86; RESP 18; O2SAT 100
[2021-02-27 21:12] VITALS: BP 122/75; PULSE 88; RESP 18; O2SAT 100
[2021-02-27] MEDS: sodium chloride 0.9% 1,000 ML 999 ML IV (21:13)
[2021-02-27 21:50] VITALS: BP 127/78; PULSE 85; RESP 18; O2SAT 100
--- NOTE | 2021-02-27 21:50 | P.HP_ITS ---
Providers/Chief Complaint Chief Complaint: ams History of Present Illness 30-year-old male with a past medical history significant for IVDA/methamphatamine abuse and recent COVID-19 infection ( 02/18) who presented to ER with altered mental status. Patient was noted to have increasing agit ation. He was seen initially in ER on morning of during which time he was given ketamine. He had denied any suicidal ideation and thus was discharged. He returned to ER later in evening with again agitation and reported aggressive/violent behavior. He was again treated with Ketamine. At the time of my eval patient was complaining of left upper extremity pain particularly in anticubital region where he typically injects. He stated he was concerned this could be infected. He did deny any fever, chills, nausea or vomiting. Poor historian at the time of my eval. No family at bedside. Laboratory workup showed a WBC of 7.4, hemoglobin of 11.9, hematocrit 36.0 and platelet count 203. Sodium 139, potassium 3.6, chloride 108, bicarb 20, BUN 9 and creatinine of 0.8. Glucose 76.CK level of 1728. Normal UA, UDS positive for amphetamines. Imaging studies including CT Head and Chest x-ray both which did not show any evidence of acute abnormality. He was given Ativan 2 mg Iv x 1 and admitted. Review of Systems General: Reports: ROS unobtainable due to mental status Medications/Allergies Home Medications Medication Instructions Recorded Confirmed Last Taken Type No Known Home Medications 06/21/20 02/27/21 Unknown History Allergies Allergy/AdvReac Type Severity Reaction Status Date / Time No Known Drug Allergies Allergy Mild None Verified 02/27/21 09:29 PFSH Acute PFSH: Social History Smoking and tobacco status: current every day smoker Vitals/I&O/Wt Last Vital Signs Pulse 88 02/27/21 21:12 Resp 18 02/27/21 21:12 BP 122/75 02/27/21 21:12 Pulse Ox 100 02/27/21 21:12 Weight last 48 hrs Weight 70.307 kg Physical Exam Narrative: EXAM NARRATIVE: General: Alert, Awake, agitated HEENT ; Grossly Unremarkable CVS; Tachycardia Chest ; Non-labored respiration Abd : Soft NT,ND Ext; No edema, no evidence of LUE erythema Data : 02/27/21 19:45 02/27/21 19:45 A&P Assessment and plan (1) Methamphetamine abuse: Status: Acute (2) Acidosis, lactic: Status: Acute (3) Elevated CK: Status: Acute Additional A&P Information Acute Rhabdomyolysis CPK 1728 IVF Repeat CK level in Am Monitor U/O Drug-induced Metabolic Acidosis LA 6.8 Repeat Lactic acid in am Continue IVF Repeat BMP in am Methamphatamine induced psychosis PRN Ativan Consider Psych consult in AM Head CT x2 on 02/27 - Negative Seizure precautions Recent COVID-19 Infection Dx on 02/18 Precautions per infection control Chest-xray -normal DVT ppx Lovenox 40 mg SQ daily Attestations Medical Necessity Statement*: Anticipate over 2 midnights stay in hospital for evaluation treatment Time Spent in Patient Care: Greater than 35 minutes (>than 50% of time spent in counselling and/or direct pt care on unit) . Coding Level of Care Code Acute Hand Ornament Maker for Jan Mario Diagnoses Methamphetamine abuse F15.10 Acidosis, lactic E87.2 Elevated CK R74.8
[2021-02-28 00:36] VITALS: BP 146/85; PULSE 105; RESP 20; TEMP 36.7; O2SAT 100
[2021-02-28] MEDS: sodium chloride 0.9% 1,000 ML 999 ML IV (01:02)
[2021-02-28] MEDS: sodium chloride 0.9% 1,000 ML 150 ML IV ×2 (02:10→15:35)
[2021-02-28 04:00] VITALS: BP 125/73; PULSE 107; RESP 18; TEMP 37.2; O2SAT 98
--- NOTE | 2021-02-28 06:10 | PC.NURSE ---
Patient pleasant and cooperative throughout shift. Fluids administered. Regular rounding performed. Sitter at bedside.
[2021-02-28 06:17] LABS: Basophils % 0.5 %; Eosinophils % 0.5 %; Hemoglobin 12.3 g/dL (11.7-16.6); Lymphocytes # 1.5 10^3/uL (0.8-4.8); Lymphocytes % 21.8 %; Mean Corpuscular HGB Conc 32.4 g/dL (30.0-36.0); Mean Corpuscular Hemoglobin 28.6 pg (28.0-34.0); Mean Corpuscular Volume 88.4 fl (80-94); Mean Platelet Volume 9.7 fL (7.4-10.4); Monocytes # 0.7 10^3/uL (0.2-0.9); Monocytes % 10.8 %; Neutrophils # 4.41 10^3/uL (1.8-7.7); Neutrophils % 66.2 %; Nucleated Red Blood Cells % 0 %; Platelet Count 209 10^3/cmm (130-400); Red Cell Distribution Width 12.8 % (12.1-15.1); White Blood Count 6.7 10^3/uL (4.0-10.0)
[2021-02-28 06:40] LABS: Lactate (Lactic Acid level) 0.5 mmol/L (0.5-2.2)
[2021-02-28 06:41] LABS: Alanine Aminotransferase 24 U/L (0-41); Albumin Level 3.3 g/dL (3.5-5.2); Alkaline Phosphatase 63 IU/L (40-130); Anion Gap 16.6 (5-19); Aspartate Amino Transferase 43 U/L (0-40); Blood Urea Nitrogen 5 mg/dL (6-20); Calcium 7.4 mg/dL (8.5-10.5); Carbon Dioxide 16 mmol/L (22-29); Chloride 109 mmol/L (98-107); Globulin 2.3 g/dL (1.3-4.6); Glomerular Filtration Rate 160.2 mL/min (90-130); Glucose 74 mg/dL (65-115); Osmolality Calculated 282 mOsm/kg (285-295); Potassium 3.6 mmol/L (3.5-5.1); Sodium 138 mmol/L (136-145); Total Bilirubin 0.4 mg/dL (0.15-1.2); Total Protein 5.6 g/dL (6.6-8.7)
[2021-02-28 07:29] LABS: Creatine Phosphokinase 1636 U/L (39-308)
[2021-02-28 07:36] VITALS: BP 129/65; PULSE 98; RESP 18; TEMP 36.9; O2SAT 97
[2021-02-28 11:18] VITALS: BP 127/65; PULSE 81; RESP 16; TEMP 36.9; O2SAT 97
--- NOTE | 2021-02-28 15:59 | PM.DCS ---
Discharge Providers Date of Admission: 02/27/21 20:53 Date of Discharge: February 28, 2021 Attending Provider at Admission: Jerson Hooker Attending Provider at Discharge: Georgiana Hector MD Diagnoses at Discharge Discharge Diagnosis (1) Traumatic rhabdomyolysis: Status: Acute (2) Methamphetamine abuse: Status: Acute (3) Acidosis, lactic: Status: Acute (4) Altered mental status: Status: Acute Reason for Visit Reason for Visit: ams Hospital Course Hospital Course Patient is 30 year old male with h/o IVDA who presented to ED with AMS. Patient was initially seen in ED on 02/27 and released. He returned with agitation, anxiety and feeling short of breath. Patient denies fever, chills, vomiting. Patient admits to IV amphetamine use. Evaluation in ED reveals CT head and CXR unremarkable for acute process. CPK elevated consistent with rhabdomyolysis from fall the prior day. Patient started on IVF and monitored. He is now awake and alert. He denies suicidal ideation. He feels improved and has no symptoms of myalgias, chest pain, dyspnea or abdominal pain. No evidence of infection. He is afebrile. He did test positive for COVID 02/20/21 however has been asymptomatic and is not requiring supplemental oxygen. Patient denies suicidal ideation. Patient tolerating regular diet. Patient stable for discharge home and F/U as an outpatient after establishing care with PCP Physical Exam Narrative: EXAM NARRATIVE: alert, oriented and in no distress Const: COMMON NORMALS: patient oriented x3 HENMT: COMMON NORMALS: normocephalic and atraumatic HEAD & SCALP: normocephalic and atraumatic Eye: COMMON NORMALS: Equal, round and reactive pupils present, EOMs intact bilaterally and conjunctivae normal CONJUNCTIVA: Yes conjunctivae normal PUPIL: Yes Equal, round and reactive pupils present Neck/C-Spine: COMMON NORMALS: full ROM, supple, no meningeal signs and no JVD Chest: COMMONS NORMALS: normal inspection of the chest Resp: COMMON NORMALS: normal respiratory effort, No retractions and clear to auscultation bilaterally AUSCULTATION: clear to auscultation bilaterally Cardio: COMMON NORMALS: no JVD, regular rate, regular rhythm, S1 normal heart sound present, S2 normal heart sound present and No murmurs present (Cardio) RATE: regular rate RHYTHM: regular rhythm HEART SOUNDS: S1 normal heart sound present and S2 normal heart sound present GI: COMMON NORMALS: Normal to inspection, nondistended, normoactive bowel sounds present, Soft to palpation, non-tender and no masses PALPATION: Yes Soft to palpation Extremity: COMMON NORMALS: normal to inspection, full ROM, no clubbing, cyanosis or edema and no pedal edema Neuro: COMMON NORMALS: patient oriented x3, no focal motor deficits, no sensory deficits noted and gait normal MENINGEAL SIGNS: Yes no meningeal signs Psych: COMMON NORMALS: mental status grossly normal, cooperative and speech normal ATTITUDE: Yes calm SPEECH: Yes normal speech MOOD & AFFECT: Yes euthymic mood Skin: COMMON NORMALS: no rashes or lesions noted, no wounds and turgor normal GENERAL SKIN EXAM: no rashes or lesions noted and turgor normal Discharge Data Data Completed and Pending: Completed Studies During Hospitalization Category Date Time Status CT head wo con* 7 0450 Urgent Cat Scan 02/27/21 19:22 Completed XR chest 1V blanche ble [id number] Urgent Exams 02/27/21 19:22 Completed Labs from last 24 hours 02/28/21 02/28/21 02/28/21 06:08 06:08 06:08 WBC 6.7 RBC 4.30 Hgb 12.3 Hct 38.0 L MCV 88.4 MCH 28.6 MCHC 32.4 RDW 12.8 Plt Count 209 MPV 9.7 Neut % (Auto) 66.2 Lymph % (Auto) 21.8 [place] % (Auto) 10.8 Eos % (Auto) 0.5 Baso % (Auto) 0.5 Neut # (Auto) 4.41 Lymph # (Auto) 1.5 [place] # (Auto) 0.7 Eos # (Auto) 0.0 Baso # (Auto) 0.0 Nucleated RBC % (a uto) 0 Nucleated RBCs # 0.0 Specimen Type Sample Site ABG pH ABG pCO2 ABG pO2 ABG HCO3 ABG Base Excess Eros Test Hematocrit O2 Delivery Device O2 Liters/Min Asbestos Siding Installer ID Sodium 138 Potassium 3.6 Chloride 109 H Carbon Dioxide 16 L Anion Gap 16.6 BUN 5 L Creatinine 0.7 GFR Calculation 160.2 H Glucose 74 Calculated Osmolal ity 282 L Lactate 0.5 Calcium 7.4 L Total Bilirubin 0.4 AST 43 H ALT 24 Alkaline Phosphata se 63 Creatine Kinase 1636 H* Total Protein 5.6 L Albumin 3.3 L Globulin 2.3 Salicylates Acetaminophen Ethyl Alcohol 02/27/21 02/27/21 02/27/21 19:47 19:45 19:45 WBC 7.4 RBC 4.07 L Hgb 11.9 Hct 36.0 L MCV 88.5 MCH 29.2 MCHC 33.1 RDW 12.7 Plt Count 203 MPV 9.6 Neut % (Auto) 76.3 Lymph % (Auto) 11.9 [place] % (Auto) 11.2 Eos % (Auto) 0.0 Baso % (Auto) 0.3 Neut # (Auto) 5.65 Lymph # (Auto) 0.9 [place] # (Auto) 0.8 Eos # (Auto) 0.0 Baso # (Auto) 0.0 Nucleated RBC % (a uto) 0 Nucleated RBCs # 0.0 Specimen Type Arterial Sample Site Radial, right ABG pH 7.35 ABG pCO2 41.4 ABG pO2 173.0 H ABG HCO3 22.7 ABG Base Excess -2.9 L Eros Test Pos Hematocrit 38.0 L O2 Delivery Device Nc O2 Liters/Min 4.0 Asbestos Siding Installer ID Buttr Sodium 139 Potassium 3.6 Chloride 108 H Carbon Dioxide 20 L Anion Gap 14.6 BUN 9 Creatinine 0.8 GFR Calculation 137.3 H Glucose 85 Calculated Osmolal ity 286 Lactate Calcium 7.0 L Total Bilirubin 0.3 AST 41 H ALT 23 Alkaline Phosphata se 61 Creatine Kinase 1728 H* D Total Protein 5.4 L D Albumin 3.4 L Globulin 2.0 Salicylates < 0.3 L Acetaminophen < 5.0 L Ethyl Alcohol < 10 Vitals: Last Vital Signs Temp 98.5 F 02/28/21 11:18 Pulse 81 02/28/21 11:18 Resp 16 02/28/21 11:18 BP 127/65 02/28/21 11:18 Pulse Ox 97 02/28/21 11:18 Discharge Plan Discharge Patient Disposition: Home Condition: Stable Prescriptions: No Action No Known Home Medications RF: 0 Discharge Orders: Discharge Order (Routine); Ordered 02/28/21 Ordered By: Georgiana Hector Discharge Diet: Regular Discharge Activity: Resume usual activity Patient Instructions: Opioid Safety Discharge Attestations Time Spent in Discharge Care*: less than 30 min Specific Discharge Activities: educating patient, discussing with case assistant/social workers/dc planners, documenting/other paperwork and evaluating patient/reviewing data Quality Metrics Clinical Quality Measures During this hospital stay, did patient experience: None Coding Level of Care Code Acute Chg DC note Exam Comprehensive Diagnoses Traumatic rhabdomyolysis T79.6XXA Methamphetamine abuse F15.10 Acidosis, lactic E87.2 Altered mental status R41.82
== END 2021-02-28 18:43 | disposition home or self-care (01) | DRG 897 ==
LOC: ER 21:28 → MEDSURG 02-28 00:59
PROVIDERS: Admitting Provider Hospitalist; Emergency Provider Emergency Medicine; Visit Provider Internal Medicine
DX: F15.10 Other stimulant abuse, uncomplicated (principal); E87.2 Acidosis; F17.210 Nicotine dependence, cigarettes, uncomplicated; T79.6XXA Traumatic ischemia of muscle, initial encounter; W19.XXXA Unspecified fall, initial encounter; Z86.16 Personal history of COVID-19; M79.602 Pain in left arm
CPT/HCPCS: 12345; 36415; 36600; 70450; 71045; 80053; 80307; 82550; 82803; 83605; 85025; 93005; 96361; 96374; 99285; J2060; J7030

== ENCOUNTER → 2024-04-16 17:20 | Outpatient (BNVA) | payer OTHER, SELFPAY | PROVIDERS: PCP Family Medicine; Visit Provider Registered Nurse Neonatal Intensive Care | DX: Z77.21 Contact with and (suspected) exposure to potentially hazardous body fluids (principal) | CPT/HCPCS: 86705; 86706; 86709; 86803; 87340; 87806 ==